=== PATIENT | female | born 1945 | race Caucasian/White ===

== ENCOUNTER → 2016-07-29 | Outpatient (CLI) | payer MEDICARE, OTHER | LOC: RAD 11:00 | DX: R06.02 Shortness of breath (principal) | CPT/HCPCS: 71020 ==

== ENCOUNTER 2016-08-19 10:09 | Emergency (ER) | payer MEDICARE, OTHER | END 2016-08-19 14:50 | disposition home or self-care (01) | LOC: ER1 10:09 | DX: S76.911A Strain of unspecified muscles, fascia and tendons at thigh level, right thigh, initial encounter (principal); X58.XXXA Exposure to other specified factors, initial encounter; Z88.6 Allergy status to analgesic agent | CPT/HCPCS: 73502; 93971; 99284 ==

== ENCOUNTER 2020-10-06 09:15 | Observation (INO) | payer MEDICARE, OTHER ==
[~2020-10-06] VITALS: Ht 165.1 cm; Wt 117.9 kg
[~2020-10-06 09:15] MED LIST: AUGMENTIN 875-1 EACH PO; DOXYCYCLINE HY100 MG PO
[2020-10-06 12:34] LABS: HEMOGLOBIN 15.3 gm/dl (12.3-15.3); RED BLOOD COUNT 4.89 M/UL (4.00-5.10); WHITE BLOOD COUNT 7.4 K/UL (4.5-11.0)
[2020-10-06 13:12] LABS: BUN/CREATININE RATIO 20 (0-10)
[2020-10-06] MEDS ORDERED: COZAAR 50MG TAB50 MG PO (14:36)
[2020-10-06] MEDS ORDERED: LOPRESSOR 25 MG25 MG PO (14:36)
[2020-10-06] MEDS ORDERED: LEVOTHYROXINE25 MCG PO (14:37)
[2020-10-06] MEDS ORDERED: POTASSIUM CHLO10 MEQ PO (15:16)
[2020-10-06] MEDS ORDERED: VITAMIN B-121000 MC3 PO (15:17)
[2020-10-06] MEDS ORDERED: PROBIOTIC1 EAC2 PO (15:17)
[2020-10-06] MEDS ORDERED: CENTRUM SILVER1 EAC4 PO (15:17)
[2020-10-06] MEDS ORDERED: CLARITIN10 MG PO (15:18)
[2020-10-06] MEDS ORDERED: ASPIRIN EC81 MG PO (15:18)
[2020-10-07 05:32] LABS: HEMOGLOBIN 14.5 gm/dl (12.3-15.3); RED BLOOD COUNT 4.63 M/UL (4.00-5.10); WHITE BLOOD COUNT 7.1 K/UL (4.5-11.0)
[2020-10-07 05:50] LABS: BUN/CREATININE RATIO 20 (0-10)
[2020-10-09] MEDS ORDERED: PROTONIX40 MG PO (17:14)
[2020-10-10] MEDS ORDERED: XANAX0.25 MG PO (14:08)
== END 2020-10-10 16:39 | disposition home or self-care (01) ==
LOC: ER1 09:15 → CDU 13:54 → M/S 17:09
PROVIDERS: Physician Assistant; Physician Assistant Medical; ADMIT Internal Medicine
PROC: 4A023N7 Measurement of Cardiac Sampling and Pressure, Left Heart, Percutaneous Approach (ICD-10-PCS; principal; 2020-10-09)
PROC: B2111ZZ Fluoroscopy of Multiple Coronary Arteries using Low Osmolar Contrast (ICD-10-PCS; 2020-10-09)
DX: R07.89 Other chest pain (principal); I10 Essential (primary) hypertension; E78.5 Hyperlipidemia, unspecified; E03.9 Hypothyroidism, unspecified; M79.10 Myalgia, unspecified site; R06.00 Dyspnea, unspecified; F41.9 Anxiety disorder, unspecified; E66.9 Obesity, unspecified; Z68.41 Body mass index [BMI] 40.0-44.9, adult; Z20.822 Contact with and (suspected) exposure to COVID-19; Z88.2 Allergy status to sulfonamides; Z88.6 Allergy status to analgesic agent; Z91.040 Latex allergy status; Z87.19 Personal history of other diseases of the digestive system; Z79.899 Other long term (current) drug therapy; Z79.82 Long term (current) use of aspirin
CPT/HCPCS: ECHO; 36415; 70450; 71045; 78452; 80048; 80053; 80061; 82550; 82553; 83735; 83874; 83880; 84484; 85025; 85027; 93005; 93017; 93306; 96372; 99152; 99285; A9502; C1769; G0378; J0360; J1644; J1650; J2250; J2785; J3010; J7040; Q9967; U0002

== ENCOUNTER → 2021-07-26 | Outpatient (CLI) | payer MEDICARE, OTHER ==
[~2021-07-26] MED LIST changes: +ASPIRIN EC81 MG PO; +CENTRUM SILVER1 EAC4 PO; +CLARITIN10 MG PO; +COZAAR 50MG TAB50 MG PO; +LEVOTHYROXINE25 MCG PO; +LOPRESSOR 25 MG25 MG PO; +POTASSIUM CHLO10 MEQ PO; +PROBIOTIC1 EAC2 PO; +PROTONIX40 MG PO; +VITAMIN B-121000 MC3 PO; +XANAX0.25 MG PO
== END ==
LOC: KOH-I 12:55
DX: R05.1 Acute cough (principal)
CPT/HCPCS: 71046